=== PATIENT | female | born 1960 | race Caucasian/White ===

== ENCOUNTER 2017-12-13 09:05 | Emergency (ER) | payer OTHER ==
[~2017-12-13] VITALS: Ht 160 cm; Wt 71.7 kg
[~2017-12-13 09:05] MED LIST: HYDR-971 PO; ONDA4TAB10 PO
[2017-12-13 09:10] VITALS: BP 148/97
[2017-12-13] MEDS ORDERED: HYDROcodone/APAP 5/325MG 1 TAB TABLET PO ONE (09:45)
--- NOTE | 2017-12-13 09:52 | RAD ---
Indication: Fall with wrist pain. Technique: 3 views of the right wrist Comparison: None Findings: No acute fracture or dislocation. No significant joint space narrowing or productive changes to suggest osteoarthritis. Mild swelling noted of the dorsum of the wrist. Impression: No acute fracture or dislocation.
[2017-12-13] MEDS ORDERED: TRAM-48 PO (09:55)
--- NOTE | 2017-12-13 09:55 | PHYS DOC ---
Past History Past Medical History: Hepatitis Past Surgical History: Other Alcohol Use: None Drug Use: None Adult General Chief Complaint Chief Complaint: WRIST PAIN HPI HPI 57-year-old right-handed female patient states she had an accidental fall while she was at top of a chair about 2 feet high and tried to reach the top of cabinet and lost her balance and had a fall and landed on her right hand last night with pain in her right wrist that getting get better with applying ice and taking [id number] pain medication. Patient states she had history of fractured wrist at the same area. Patient denies focal neuro deficit and other injuries. Review of Systems Review of Systems Constitutional: Denies fever or chills [] Eyes: Denies change in visual acuity, redness, or eye pain [] HENT: Denies nasal congestion or sore throat [] Respiratory: Denies cough or shortness of breath [] Cardiovascular: No additional information not addressed in HPI [] GI: Denies abdominal pain, nausea, vomiting, bloody stools or diarrhea [] : Denies dysuria or hematuria [] Musculoskeletal: Denies back pain or joint pain [] Integument: Denies rash or skin lesions [] Neurologic: Denies headache, focal weakness or sensory changes [] Endocrine: Denies polyuria or polydipsia [] All other systems were reviewed and found to be within normal limits, except as documented in this note. Current Medications Current Medications Current Medications Medications (Trade) Dose Ordered Sig/[facility] Start Time Stop Time Status Last Admin Dose Admin Acetaminophen/ Hydrocodone Bitart (Lortab 5/325) 1 tab 1X ONCE 12/13/17 09:45 12/13/17 09:46 DC Allergies Allergies Allergies Coded Allergies Type Severity Reaction Last Updated Verified Penicillins Allergy Unknown rash 07/15/16 Yes cephalexin Allergy Unknown rash 07/15/16 Yes ibuprofen Allergy Unknown rash, vomiting 07/15/16 Yes morphine Allergy Unknown anxiety 07/15/16 Yes Physical Exam Physical Exam Constitutional: Well nourished, mild distress, non-toxic appearance, anxious [] HENT: Normocephalic, atraumatic, bilateral external ears normal, oropharynx moist, no oral exudates, nose normal. [] Eyes: PERRLA, EOMI, conjunctiva normal, no discharge. [] Neck: Normal range of motion, no tenderness, supple, no stridor. [] Cardiovascular:Heart rate regular rhythm, no murmur [] Lungs & Thorax: Bilateral breath sounds clear to auscultation [] Skin: Warm, dry, no erythema, no rash. [] Extremities: Right studies with mild edema in medial side and tenderness without focal neuro deficit or deformity. [] Neurologic: Alert and oriented X 3, normal motor function, normal sensory function, no focal deficits noted. [] Psychologic: Affect normal, judgement normal, mood normal. [] EKG EKG [] Radiology/Procedures Radiology/Procedures [] Right wrist x-ray interpreted by me and did not show fracture] Course & Med Decision Making Course & Med Decision Making Pertinent Imaging studies reviewed. (See chart for details) Evaluation of patient in ER showed 57-year-old female patient with a fall last night and injury to right wrist with history of previous fracture at the same area. Patient had tenderness in medial side of his with anxiety. X-ray did not show fracture, Velcro wrist splint was applied by DISTRIBUTION MANAGER and patient discharged home with prescription of Ultram and instruction to follow up with her primary care physician. [] Dragon Disclaimer Dragon Disclaimer This electronic medical record was generated, in whole or in part, using a voice recognition dictation system. Departure Departure: Impression: Primary Impression: Right wrist sprain Additional Impressions: Tobacco abuse Tobacco abuse counseling Disposition: HOME, SELF-CARE (At 0951) Condition: IMPROVED Referrals: LUIS ARMANDO HARRIS MD (PCP) Patient Instructions: Wrist Sprain with [facility] Additional Instructions: Quit smoking Follow-up with your primary care physician in 3-5 days Return to ER if not getting better Apply ice on the affected area Scripts Tramadol Hcl (ULTRAM) 50 Mg Tablet 50 MG PO PRN Q6HRS Y for PAIN, #14 TAB Prov: KOSTAS DAVENPORT MD 12/13/17 Problem Qualifiers KOSTAS DAVENPORT MD Dec 13, 2017 09:55
== END 2017-12-13 10:02 | disposition home or self-care (01) ==
LOC: ER 09:05
DX: S63.501A Unspecified sprain of right wrist, initial encounter (principal); Z88.0 Allergy status to penicillin; Z88.1 Allergy status to other antibiotic agents; Z88.6 Allergy status to analgesic agent; Z88.5 Allergy status to narcotic agent; W07.XXXA Fall from chair, initial encounter; Y93.89 Activity, other specified; Y99.8 Other external cause status; Y92.89 Other specified places as the place of occurrence of the external cause
CPT/HCPCS: 29125; 73110; 99284

== ENCOUNTER 2018-05-11 18:53 | Emergency (ER) | payer OTHER ==
[~2018-05-11] VITALS: Ht 160 cm; Wt 65.0 kg
[~2018-05-11 18:53] MED LIST changes: +TRAM-48 PO
--- NOTE | 2018-05-11 18:56 | ED.ADGEN ---
Past History Past Medical History: Anxiety, Bronchitis, Cancer, COPD, Hepatitis, UTI, Other Past Surgical History: Hysterectomy, Tubal ligation, Other Alcohol Use: Rarely Drug Use: Marijuana Adult General Chief Complaint Chief Complaint ".. I have multiple complaints.. my teeth.. I still need the rest out... I had a bunch on 2 weeks.. ago,,, I have not pooped since last week... I am a every day girl.. I am vomiting foam.. .I just don't feel well...".. " My Lt. wrist hurts... ".. and I got a spider bite my Lt. ankle..." HPI HPI Patient is a 57 year old female who presents with above hx and multiple complaints. Pt. main 1# complaints if nausea and vomiting. Pt. has had poor intake. Still passing gas rectally. Pt. has had multiple abd. surgeries, for cancer and hysterectomy 2nd HPV. 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 Pt. denies bad food, travel or specific ill contacts. Pt. does still smoke. Pt. has Hx. of Hept. C. - chronic. Pt. follows with Dr. Lou Gottlieb. Pt. is accompanied with her older sister. Review of Systems Review of Systems Constitutional: Denies fever or chills [] Eyes: Denies change in visual acuity, redness, or eye pain [] HENT: Denies nasal congestion or sore throat [] Respiratory: Denies cough or shortness of breath [] Cardiovascular: No additional information not addressed in HPI [] GI:Complaints of abdominal pain, nausea, vomiting, and constipation. Denies bloody stools or diarrhea [] : Denies dysuria or hematuria [] Musculoskeletal: Denies back pain or joint pain []Except Lt wrist pain. Integument: Denies rash or skin lesions [] Hx spider bite Lt ankle Neurologic: Denies headache, focal weakness or sensory changes [] Endocrine: Denies polyuria or polydipsia [] All other systems were reviewed and found to be within normal limits, except as documented in this note. Family History Family History Noncontributory Current Medications Current Medications Current Medications Medications (Trade) Dose Ordered Sig/Loc Start Time Stop Time Status Last Admin Dose Admin Diphenhydramine HCl (Benadryl) 50 mg 1X ONCE 05/11/18 23:00 7/3/18 23:01 DC 05/11/18 22:57 50 MG Famotidine (Pepcid) 20 mg 1X ONCE 05/11/18 19:30 05/11/18 19:31 DC 05/11/18 19:31 20 MG Info (Do NOT chart on this entry -- for MONITORING) 1 each PRN DAILY PRN 05/11/18 20:45 05/11/18 23:50 DC Iohexol (Omnipaque 240 Mg/ml) 30 ml 1X ONCE 05/11/18 20:45 05/11/18 20:46 DC 05/11/18 21:45 30 ML Iohexol (Omnipaque 300 Mg/ml) 75 ml 1X ONCE 05/11/18 20:45 05/11/18 20:46 DC 05/11/18 21:45 75 ML Ketorolac Tromethamine (Toradol) 30 mg 1X ONCE 05/11/18 22:45 05/11/18 22:56 DC 05/11/18 22:42 30 MG Lactated Ringer's 1,000 ml @ 1,000 mls/hr Q1H 05/11/18 19:11 05/11/18 20:10 DC 05/11/18 19:32 1,000 MLS/HR Levofloxacin (Levaquin) 500 mg 1X ONCE 05/11/18 21:00 05/11/18 21:01 DC 05/11/18 20:54 500 MG Magnesium Hydroxide (Milk Of Magnesia) 2,400 mg 1X ONCE 05/11/18 19:30 05/11/18 19:31 DC 05/11/18 19:31 2,400 MG Metronidazole 100 ml @ 100 mls/hr 1X ONCE 05/11/18 21:00 05/11/18 21:59 DC 05/11/18 20:54 100 MLS/HR Ondansetron HCl (Zofran Odt) 8 mg 1X ONCE 05/11/18 22:45 05/11/18 22:46 DC 05/11/18 22:34 8 MG Oxycodone/ Acetaminophen (Percocet 5/325) 2 tab 1X ONCE 05/11/18 21:00 05/11/18 21:01 DC 05/11/18 20:54 2 TAB Promethazine HCl (Phenergan Im) 25 mg 1X ONCE 05/11/18 23:00 05/11/18 23:01 DC 05/11/18 22:57 25 MG Promethazine HCl (Phenergan) 25 mg STK-MED ONCE 05/11/18 22:47 05/11/18 22:48 DC Tetanus/ Diphtheria Toxoids Adsorbed (Tenivac Vial) 0.5 ml ONCE ONCE 05/11/18 19:45 05/11/18 19:46 DC 05/11/18 20:13 0.5 ML Allergies Allergies Allergies Coded Allergies Type Severity Reaction Last Updated Verified Penicillins Allergy Unknown rash 07/15/16 Yes cephalexin Allergy Unknown rash 07/15/16 Yes ibuprofen Allergy Unknown rash, vomiting 07/15/16 Yes morphine Allergy Unknown anxiety 07/15/16 Yes Physical Exam Physical Exam Constitutional: Moderately acute distress, non-toxic appearance. [] HENT: Normocephalic, atraumatic, bilateral external ears normal, oropharynx moist, no oral exudates, nose normal. Dental caries poor dentition Eyes: PERRLA, EOMI, conjunctiva normal, no discharge. [] Neck: Normal range of motion, no tenderness, supple, no stridor. [] Cardiovascular: Tachycardia Heart rate regular rhythm, no murmur []PMI to the left Lungs & Thorax: Bilateral breath sounds GERD wheezes on auscultation [] Abdomen: Bowel sounds normal, soft, mild generalized tenderness, no masses, no pulsatile masses. [] Multiple surgical scars. Distended. Obese. Skin: Warm, dry, no erythema, no rash. [] Back: No tenderness, no CVA tenderness. [] Extremities: No tenderness, no cyanosis, no clubbing, ROM intact, no edema. Except Insect bite left lower leg.. Left wrist pain Neurologic: Alert and oriented X 3, normal motor function, normal sensory function, no focal deficits noted. [] Psychologic: Affect anxious, judgement normal, mood normal. [] Current Patient Data Vital Signs Vital Signs Date Time Temp Pulse Resp B/P (MAP) Pulse Ox O2 Delivery O2 Flow Rate FiO2 05/11/18 23:45 98.4 59 20 130/63 (85) 98 Room Air Lab Results Laboratory Tests Test 05/11/18 19:34 White Blood Count 10.0 x10^3/uL (4.0-11.0) Red Blood Count 4.78 x10^6/uL (3.50-5.40) Hemoglobin 15.1 g/dL (12.0-15.5) Hematocrit 44.4 % (36.0-47.0) Mean Corpuscular Volume 93 fL (79-100) Mean Corpuscular Hemoglobin 32 pg (25-35) Mean Corpuscular Hemoglobin Concent 34 g/dL (31-37) Red Cell Distribution Width 14.7 % (11.5-14.5) H Platelet Count 325 x10^3/uL (140-400) Neutrophils (%) (Auto) 66 % (31-73) Lymphocytes (%) (Auto) 25 % (24-48) Monocytes (%) (Auto) 8 % (0-9) Eosinophils (%) (Auto) 0 % (0-3) Basophils (%) (Auto) 1 % (0-3) Neutrophils # (Auto) 6.6 x10^3uL (1.8-7.7) Lymphocytes # (Auto) 2.5 x10^3/uL (1.0-4.8) Monocytes # (Auto) 0.8 x10^3/uL (0.0-1.1) Eosinophils # (Auto) 0.0 x10^3/uL (0.0-0.7) Basophils # (Auto) 0.1 x10^3/uL (0.0-0.2) Prothrombin Time 10.3 SEC (9.4-11.4) Prothrombin Time INR 1.0 (0.9-1.1) PTT 28 SEC (23-33) Urine Collection Type Unknown Urine Color Yulia Urine Clarity Cloudy Urine pH 5.5 Urine Specific Rowena >=1.030 Urine Protein 100 mg/dl (NEG-TRACE) Urine Glucose (UA) Neg mg/dL (NEG) Urine Ketones (Stick) 80 mg/dL (NEG) Urine Blood Small (NEG) Urine Nitrite Pos (NEG) Urine Bilirubin Small (NEG) Urine Urobilinogen Dipstick 0.2 mg/dL (0.2 mg/dL) Urine Leukocyte Esterase Small (NEG) Urine RBC 6-10 /HPF (0-2) Urine WBC >40 /HPF (0-4) Urine Squamous Epithelial Cells Few /LPF Urine Bacteria Many /HPF (0-FEW) Urine Mucus Mod /LPF Sodium Level 141 mmol/L (136-145) Potassium Level 3.6 mmol/L (3.5-5.1) Chloride Level 103 mmol/L (98-107) Carbon Dioxide Level 28 mmol/L (21-32) Anion Gap 10 (6-14) Blood Urea Nitrogen 13 mg/dL (7-20) Creatinine 0.7 mg/dL (0.6-1.0) Estimated GFR (Cockcroft-Gault) 86.9 Glucose Level 100 mg/dL (70-99) H Calcium Level 10.1 mg/dL (8.5-10.1) Total Bilirubin 1.1 mg/dL (0.2-1.0) H Direct Bilirubin 0.3 mg/dL (0.0-0.2) H Aspartate Amino Transferase (AST) 32 U/L (15-37) Alanine Aminotransferase (ALT) 42 U/L (14-59) Alkaline Phosphatase 150 U/L (46-116) H Creatine Kinase 66 U/L (26-192) Creatine Kinase MB (Mass) 1.9 ng/mL (0.0-3.6) Creatine Kinase MB Relative Index 2.9 % (0-4) Troponin I Quantitative < 0.017 ng/mL (0-0.055) Total Protein 8.0 g/dL (6.4-8.2) Albumin 4.3 g/dL (3.4-5.0) Amylase Level 29 U/L (25-115) Lipase 84 U/L (73-393) Urine Opiates Screen Neg (NEG) Urine Methadone Screen Neg (NEG) Urine Barbiturates Neg (NEG) Urine Phencyclidine Screen Neg (NEG) Urine Amphetamine/Methamphetamine Neg (NEG) Urine Benzodiazepines Screen Neg (NEG) Urine Cocaine Screen Neg (NEG) Urine Cannabinoids Screen Pos (NEG) Urine Ethyl Alcohol Neg (NEG) EKG EKG My interpretation of EKG shows a sinus rhythm at 68 bpm. She does have a nonspecific anterior septal changes. But no findings acute STEMI with contralateral changes.[] Radiology/Procedures Radiology/Procedures I interpretation of chest x-ray shows chronic pulmonary changes. No free air under the diaphragm. Nonspecific bowel gas pattern. prior surgical clips in abdomen.[] CT shows no surgical pathology. CT of head shows no shift, mass, edema, bleed, or fracture. X-ray of left wrist shows no obvious fracture. Does have degenerative joint changes. Course & Med Decision Making Course & Med Decision Making Pertinent Labs and Imaging studies reviewed. (See chart for details) Clear fluid diet only x 48 hrs. No solids or milk products. Clear fluids only. Take tylenol and ibuprofen for pain. Zofran for nausea and vomiting. Levaquin 500 daily and Flagyl 500 three times a day. Follow up with primary. Stop smoking. Return if any concerns. [] Final Impression Final Impression 1. Nausea and Vomiting 2. [Abd. Pain 3. UTI- 4. Marijuana and Tobacco use 5. Hx. Hepatitis C- Elev. John. Alk phos. Dragon Disclaimer Dragon Disclaimer This electronic medical record was generated, in whole or in part, using a voice recognition dictation system. MADY WHITE MD May 11, 2018 18:56
[2018-05-11] MEDS ORDERED: IV RINGERS SOLUTION,LACTATED 1,000 ML IV SCH (19:11)
--- NOTE | 2018-05-11 19:25 | EKG ---
[address] [address] Test Date: 2018-05-11 Test Time: 19:18:45 Pat Name: SLICK WHITE Department: Room: Gender: F Dental Hygienist Mobile Coordinator: POPPY : 1960 Requested By: MADY WHITE Order Number: [id number] Reading MD: Homero Macario MD Measurements Intervals [place] Rate: 68 P: 70 KS: 174 QRS: -6 QRSD: 104 T: 71 QT: 432 QTc: 460 Interpretive Statements SINUS RHYTHM rbbb NON-SPECIFIC ST/T CHANGES Electronically Signed On 05-13-2018 12:49:48 CDT by Homero Macario MD
[2018-05-11] MEDS ORDERED: ONDANSETRON ODT 4 MG TAB.RAPDIS PO ONE ×2 (19:30→22:45)
[2018-05-11] MEDS ORDERED: FAMOTIDINE 20 MG TABLET PO ONE (19:30)
[2018-05-11] MEDS ORDERED: MAGNESIUM HYDROXIDE 2,400 MG/30 ML ORAL.SUSP. PO ONE (19:30)
[2018-05-11] MEDS ORDERED: TETANUS AND DIPHTHERIA TOX/PF 0.5 ML VIAL. VAX IM ONE (19:45)
[2018-05-11 19:59] LABS: BASO # 0.1 x10^3/uL (0.0-0.2); BASO % 1 % (0-3); EOS % 0 % (0-3); HEMATOCRIT 44.4 % (36.0-47.0); HEMOGLOBIN 15.1 g/dL (12.0-15.5); LYMPH # 2.5 x10^3/uL (1.0-4.8); LYMPH % 25 % (24-48); MEAN CORPUSCULAR HEMOGLOBIN 32 pg (25-35); MEAN CORPUSCULAR HGB CONC 34 g/dL (31-37); MEAN CORPUSCULAR VOLUME 93 fL (79-100); MONO # 0.8 x10^3/uL (0.0-1.1); MONO % 8 % (0-9); NEUT # 6.6 x10^3uL (1.8-7.7); NEUT % 66 % (31-73); PLATELET COUNT 325 x10^3/uL (140-400); RED BLOOD COUNT 4.78 x10^6/uL (3.50-5.40); RED CELL DISTRIBUTION WIDTH 14.7 % (11.5-14.5)
[2018-05-11 20:09] LABS: BACTERIA,URINE MANY /HPF (0-FEW); BILIRUBIN,URINE SMALL (NEG); CLARITY,URINE CLOUDY; COLOR,URINE AMBER; GLUCOSE,URINE NEG (NEG); NITRITE,URINE POS (NEG); SQUAMOUS EPITHELIAL CELL,UR FEW /LPF; UROBILINOGEN,URINE 0.2 mg/dL (0.2 mg/dL); WBC,URINE >40 /HPF (0-4)
[2018-05-11 20:13] LABS: BARBITURATES NEG (NEG); BENZODIAZEPINES NEG (NEG); CANNABINOIDS POS (NEG); COCAINE NEG (NEG); METHADONE NEG (NEG); OPIATES NEG (NEG); PHENCYCLIDINE NEG (NEG)
[2018-05-11 20:14] LABS: AMPHETAMINE/METHAMPHETAMINE NEG (NEG)
[2018-05-11 20:22] LABS: ALBUMIN 4.3 g/dL (3.4-5.0); CALCIUM 10.1 mg/dL (8.5-10.1); CREATININE 0.7 mg/dL (0.6-1.0); DIRECT BILIRUBIN 0.3 mg/dL (0.0-0.2); GFR 86.9; POTASSIUM 3.6 mmol/L (3.5-5.1); TOTAL BILIRUBIN 1.1 mg/dL (0.2-1.0)
[2018-05-11] MEDS ORDERED: CONTRAST GIVEN MC PRN (20:45)
[2018-05-11] MEDS ORDERED: IOHEXOL 240 MG/ML 50ML VIAL. PO ONE (20:45)
[2018-05-11] MEDS ORDERED: IOHEXOL 300 MG/ML 75 ML VIAL. IV ONE (20:45)
[2018-05-11] MEDS ORDERED: levoFLOXacin 500 MG TABLET PO ONE (21:00)
[2018-05-11] MEDS ORDERED: oxyCODONE/APAP 5/325 1 TAB TABLET PO ONE (21:00)
--- NOTE | 2018-05-11 22:10 | RAD ---
PQRS Compliance Statement: One or more of the following individualized dose reduction techniques were utilized for this examination: 1. Automated exposure control 2. Adjustment of the mA and/or kV according to patient size 3. Use of iterative reconstruction technique CT ABD PELV W/ORAL IV CONTRAST Clinical Indication: Abdomen pain, nausea, vomiting, constipation. Hx: Hysterectomy, Hep C Comparison: None. Technique: Helical CT imaging of the abdomen and pelvis is performed after 75 cc Omnipaque 300 IV contrast. Oral contrast also given. Findings: Mild dependent atelectasis in the bilateral lower lobes. Cardiac size normal. There is a 6 mm hypodensity in segment 5 of the liver, too small to further characterize. Liver otherwise homogeneous. The gallbladder, spleen, pancreas, adrenal glands, and abdominal aorta caliber are normal. There is a right renal cyst measuring 4.5 cm. There is a 1.9 cm cyst in the lower pole of the left kidney. There are multiple other probable cysts that are mainly subcentimeter in the bilateral kidneys. Interpolar 1.6 cm left renal cyst may contain thin septations, coronal image 34. There is no hydronephrosis. No ureteral calculus. Stomach unremarkable. No dilated small bowel. Descending and sigmoid colon diverticulosis without acute inflammation. There is no colon wall thickening. No abdominal adenopathy or free fluid. Urinary bladder is normal. Uterus surgically absent. No pelvic free fluid. No acute bone abnormality. IMPRESSION: 1. No acute abdominal or pelvic abnormality. 2. Distal colon diverticulosis without diverticulitis. 3. Multiple bilateral renal cysts. Small interpolar left renal cyst may be septated. Recommend outpatient renal ultrasound. Electronically signed by: Parvez Bullard MD (05/11/2018 10:07 PM) [facility]
--- NOTE | 2018-05-11 22:18 | RAD ---
WRIST 3V LEFT History: 616930.001 Chronic left wrist pain Comparison: October 03, 2005 Findings: 3 views of the left wrist are submitted. No acute fracture or dislocation is identified. Impression: 1. No acute osseous abnormality is identified. Electronically signed by: Emir Turcios MD (05/11/2018 10:15 PM) [facility]
--- NOTE | 2018-05-11 22:21 | RAD ---
ACUTE ABDOMEN SERIES History: 453368.001 Abdomen pain, nausea and vomiting Comparison: May 26, 2010 Findings: Single view of the chest and single supine and upright views of the abdomen are submitted. There is no lobar consolidation, pleural fluid, pneumothorax. No free air is identified. There is a nonobstructive bowel gas pattern. Impression: 1. There is a nonobstructive bowel gas pattern. There is no significant infiltrate. Electronically signed by: Emir Turcios MD (05/11/2018 10:18 PM) [facility]
[2018-05-11] MEDS ORDERED: ONDA8TAB12 PO (22:26)
[2018-05-11] MEDS ORDERED: LEVO500T59 PO (22:26)
[2018-05-11] MEDS ORDERED: METR500T PO (22:26)
[2018-05-11] MEDS ORDERED: KETOROLAC 30 MG/ML VIAL. ONE (22:36)
[2018-05-11] MEDS ORDERED: KETOROLAC 30 MG/ML VIAL. IV ONE (22:45)
[2018-05-11] MEDS ORDERED: PROMETHAZINE 25 MG/ML VIAL IV ONE (22:47)
[2018-05-11] MEDS ORDERED: PROMETHAZINE IM 25 MG/ML VIAL IM ONE (23:00)
[2018-05-11] MEDS ORDERED: diphenhydrAMINE 50 MG/ML VIAL IVP ONE (23:00)
--- NOTE | 2018-05-11 23:11 | RAD ---
RS Compliance Statement: One or more of the following individualized dose reduction techniques were utilized for this examination: 1. Automated exposure control 2. Adjustment of the mA and/or kV according to patient size 3. Use of iterative reconstruction technique CT HEAD WITHOUT CONTRAST History: 512731.001 Nausea, vomiting, headache today Comparison: None. Procedure: Axial images are obtained of the head from the skull base through the vertex without IV contrast. Findings: Please note earlier same night patient had CT abdomen and pelvis with contrast. Intravascular contrast is still present. This decreases sensitivity for detection of intracranial hemorrhage. The ventricles and sulci are normal for the patient's age. No mass-effect, midline shift, obvious hemorrhage, or extra-axial fluid collection is identified. Basilar cisterns are patent. Bone windows demonstrate no acute calvarial abnormality. The visualized paranasal sinuses are clear. Mastoid air cells are well aerated. IMPRESSION: No acute intracranial abnormality. Electronically signed by: Parvez Bullard MD (05/11/2018 11:08 PM) [facility]
[2018-05-11 23:45] VITALS: BP 130/63
== END 2018-05-11 23:50 | disposition home or self-care (01) ==
LOC: ER 18:53
DX: N39.0 Urinary tract infection, site not specified (principal); F12.10 Cannabis abuse, uncomplicated; F17.200 Nicotine dependence, unspecified, uncomplicated; M25.532 Pain in left wrist; Z86.19 Personal history of other infectious and parasitic diseases; J44.9 Chronic obstructive pulmonary disease, unspecified; F41.9 Anxiety disorder, unspecified; Z90.710 Acquired absence of both cervix and uterus; Z98.51 Tubal ligation status; Z88.0 Allergy status to penicillin; Z88.1 Allergy status to other antibiotic agents; Z88.6 Allergy status to analgesic agent; Z88.5 Allergy status to narcotic agent
CPT/HCPCS: 36415; 70450; 73110; 74022; 74177; 80048; 80076; 80307; 81001; 82150; 82553; 83690; 84484; 85025; 85610; 85730; 90471; 90714; 93005; 96361; 96365; 96372; 96375; 99285; J1200; J1885; J2550; J3490; J7120; Q0162; Q9966; Q9967; 87086; G0479

== ENCOUNTER 2019-01-04 16:19 | Emergency (ER) | payer SELFPAY ==
[~2019-01-04] VITALS: Ht 157.5 cm; Wt 75.7 kg
[~2019-01-04 16:19] MED LIST changes: +HYDR-3165 PO; -HYDR-971 PO; +LEVO500T59 PO; +METR500T PO; +ONDA8TAB12 PO
[2019-01-04] MEDS ORDERED: KETOROLAC 60 MG/2 ML VIAL. IM ONE (17:00)
[2019-01-04] MEDS ORDERED: ORPHENADRINE CITRATE 60 MG/2 ML VIAL. IM ONE (17:00)
[2019-01-04 17:02] VITALS: BP 144/80
--- NOTE | 2019-01-04 17:03 | PHYS DOC ---
Past History Past Medical History: Anxiety, Bronchitis, Cancer, COPD, Hepatitis, UTI, Other Past Surgical History: Appendectomy, , Hysterectomy, Tubal ligation Smoking: Cigarettes, Greater than 1 pack/day Alcohol Use: None Drug Use: Marijuana Adult General Chief Complaint Chief Complaint: BACK PAIN HPI HPI Patient is a 58 year old female who presents with obtaining of low back pain for the last 5 days. Patient complaining of sudden onset of left lower back pain for the last 5 days as a constant pain that getting worse with movement and activity as a cramping pain with radiation to back of left thigh. Patient rated her pain 8/10 and states she took her last Valium today and took Tylenol without improvement of her pain. Patient complaining of intermittent episodes of numbness of left thigh without focal weakness and urine and bowel incontinence. Patient states she has history of chronic back pain and bulging disc but was not agree to have back surgery. Review of Systems Review of Systems Constitutional: Denies fever or chills [] Eyes: Denies change in visual acuity, redness, or eye pain [] HENT: Denies nasal congestion or sore throat [] Respiratory: Denies cough or shortness of breath [] Cardiovascular: No additional information not addressed in HPI [] GI: Denies abdominal pain, nausea, vomiting, bloody stools or diarrhea [] : Denies dysuria or hematuria [] Musculoskeletal: Reports back pain Integument: Denies rash or skin lesions [] Neurologic: Denies headache, focal weakness, reports sensory changes [] Endocrine: Denies polyuria or polydipsia [] All other systems were reviewed and found to be within normal limits, except as documented in this note. Current Medications Current Medications Current Medications Medications (Trade) Dose Ordered Sig/[facility] Start Time Stop Time Status Last Admin Dose Admin Ketorolac Tromethamine (Toradol Im) 60 mg 1X ONCE 01/04/19 17:00 01/04/19 17:01 UNV Orphenadrine Citrate (Norflex) 60 mg 1X ONCE 01/04/19 17:00 01/04/19 17:01 UNV Allergies Allergies Allergies Coded Allergies Type Severity Reaction Last Updated Verified Penicillins Allergy Unknown rash 07/15/16 Yes cephalexin Allergy Unknown rash 07/15/16 Yes ibuprofen Allergy Unknown rash, vomiting 07/15/16 Yes morphine Allergy Unknown anxiety 07/15/16 Yes Physical Exam Physical Exam Constitutional: Well developed, well nourished, mild distress, non-toxic appearance. [] HENT: Normocephalic, atraumatic. Eyes: PERRLA, EOMI, conjunctiva normal, no discharge. [] Neck: Normal range of motion, no tenderness, supple, no stridor. [] Cardiovascular:Heart rate regular rhythm, no murmur [] Lungs & Thorax: Bilateral breath sounds clear to auscultation [] Abdomen: Bowel sounds normal, soft, no tenderness, no masses, no pulsatile masses. [] Skin: Warm, dry, no erythema, no rash. [] Back: No midline tenderness, left paraspinal muscle spasm , no CVA tenderness. [ ] Extremities: No tenderness, no cyanosis, no clubbing, ROM intact, no edema. [] Neurologic: Alert and oriented X 3. Psychologic: Affect anxious, judgement normal, mood normal. [] Current Patient Data Vital Signs Vital Signs Date Time Temp Pulse Resp B/P (MAP) Pulse Ox O2 Delivery O2 Flow Rate FiO2 01/04/19 16:25 97.9 64 20 97 Room Air EKG EKG [] Radiology/Procedures Radiology/Procedures [] Course & Med Decision Making Course & Med Decision Making discharge: I've spoken with the patient and/or caregivers. I've explained the patient's condition, diagnosis and treatment plan based on information available to me at this time. I've answered the patient's and/or caregivers questions and addressed any concerns. The patient and/or caregivers have a good understanding the patient's diagnosis, condition and treatment plan as can be expected at this point. Vital signs have been stabilized. The patient's condition is stable for discharge from the emergency department. The patient will pursue further outpatient evaluation with her primary care provider or other designated consulting physician as outlined in the discharge instructions. Patient and/or caregivers are agreeable to this plan of care and follow-up instructions have been explained in detail. The patient and/or caregivers have received these instructions in written format and expressed understanding of these discharge instructions. The patient and her caregivers are aware that if any significant change in condition or worsening of symptoms should prompt him to immediately return to this of the closest emergency department. If an emergent department is not readily available I would encourage him to call 911. Wu Disclaimer Wu Disclaimer This electronic medical record was generated, in whole or in part, using a voice recognition dictation system. Departure Departure: Impression: Primary Impression: Acute lumbosacral myofascial strain Disposition: 01 HOME, SELF-CARE (at 1750) Condition: IMPROVED Referrals: LUIS ARMANDO HARRIS MD (PCP) Patient Instructions: Lumbosacral Strain, Smoking Cessation, Tips For Success Additional Instructions: Apply ice on the affected area Drink plenty of liquids Follow-up with your primary care physician in 3-5 days Return to ER if not getting better Scripts Hydrocodone Bit/Acetaminophen (NORCO 5-325 TABLET) 1 Each Tablet 1 TAB PO PRN Q6HRS PRN for PAIN, #12 TAB 0 Refills Prov: KOSTAS DAVENPORT MD 01/04/19 Methylprednisolone (MEDROL) 4 Mg Tab.ds.pk 1 PKG PO UD for inflammation, #1 PKG Prov: KOSTAS DAVENPORT MD 01/04/19 Cyclobenzaprine Hcl (CYCLOBENZAPRINE HCL) 10 Mg Tablet 1 TAB PO TID for pain, #30 TAB Prov: KOSTAS DAVENPORT MD 01/04/19 KOSTAS DAVENPORT MD Jan 04, 2019 17:03
[2019-01-04] MEDS ORDERED: CYCL-331 PO (17:52)
[2019-01-04] MEDS ORDERED: METH4TAB2 PO (17:52)
[2019-01-04] MEDS ORDERED: HYDR-3165 PO (17:52)
== END 2019-01-04 18:00 | disposition home or self-care (01) ==
LOC: ER 16:19
DX: S39.012A Strain of muscle, fascia and tendon of lower back, initial encounter (principal); G89.29 Other chronic pain; F41.9 Anxiety disorder, unspecified; J44.9 Chronic obstructive pulmonary disease, unspecified; F17.210 Nicotine dependence, cigarettes, uncomplicated; Z87.440 Personal history of urinary (tract) infections; Z90.49 Acquired absence of other specified parts of digestive tract; Z90.89 Acquired absence of other organs; Z90.710 Acquired absence of both cervix and uterus; Z98.51 Tubal ligation status; Z88.1 Allergy status to other antibiotic agents; Z88.5 Allergy status to narcotic agent; Z88.6 Allergy status to analgesic agent; Z88.0 Allergy status to penicillin; X58.XXXA Exposure to other specified factors, initial encounter; Y93.89 Activity, other specified; Y92.89 Other specified places as the place of occurrence of the external cause; Y99.8 Other external cause status
CPT/HCPCS: 96372; 99283; J1885; J2360

== ENCOUNTER → 2019-04-05 | Outpatient (CLI) | payer SELFPAY ==
[~2019-04-05] MED LIST changes: +CYCL-331 PO; +METH4TAB2 PO
[2019-04-05 11:20] LABS: BASO % 0 % (0-3); EOS # 0.1 x10^3/uL (0.0-0.7); EOS % 1 % (0-3); HEMATOCRIT 44.6 % (36.0-47.0); HEMOGLOBIN 15.2 g/dL (12.0-15.5); LYMPH # 3.4 x10^3/uL (1.0-4.8); LYMPH % 32 % (24-48); MEAN CORPUSCULAR HEMOGLOBIN 32 pg (25-35); MEAN CORPUSCULAR HGB CONC 34 g/dL (31-37); MEAN CORPUSCULAR VOLUME 93 fL (79-100); MONO # 0.7 x10^3/uL (0.0-1.1); MONO % 7 % (0-9); NEUT # 6.5 x10^3uL (1.8-7.7); NEUT % 61 % (31-73); PLATELET COUNT 294 x10^3/uL (140-400); RED BLOOD COUNT 4.81 x10^6/uL (3.50-5.40); WHITE BLOOD COUNT 10.8 x10^3/uL (4.0-11.0)
--- NOTE | 2019-04-05 11:24 | EKG ---
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
[2019-04-05 11:27] LABS: ALBUMIN 4.2 g/dL (3.4-5.0); CALCIUM 9.7 mg/dL (8.5-10.1); CREATININE 0.7 mg/dL (0.6-1.0); DIRECT BILIRUBIN 0.1 mg/dL (0.0-0.2); GFR 86.6; POTASSIUM 3.5 mmol/L (3.5-5.1); TOTAL BILIRUBIN 0.5 mg/dL (0.2-1.0); TOTAL PROTEIN 8.3 g/dL (6.4-8.2)
== END | disposition home or self-care (01) ==
LOC: EKG 10:48
PROVIDERS: ATTEND Anesthesiology
DX: Z01.818 Encounter for other preprocedural examination (principal)
CPT/HCPCS: 36415; 80053; 82248; 85025; 85610; 93005

== ENCOUNTER → 2020-01-09 | Outpatient (CLI) | payer MEDICAID ==
[2020-01-09 16:28] LABS: BASO # 0.1 x10^3/uL (0.0-0.2); BASO % 1 % (0-3); EOS # 0.1 x10^3/uL (0.0-0.7); EOS % 1 % (0-3); HEMATOCRIT 42.4 % (36.0-47.0); HEMOGLOBIN 14.1 g/dL (12.0-15.5); LYMPH # 3.5 x10^3/uL (1.0-4.8); LYMPH % 42 % (24-48); MEAN CORPUSCULAR HEMOGLOBIN 30 pg (25-35); MEAN CORPUSCULAR HGB CONC 33 g/dL (31-37); MEAN CORPUSCULAR VOLUME 91 fL (79-100); MONO # 0.7 x10^3/uL (0.0-1.1); MONO % 8 % (0-9); NEUT # 3.9 x10^3uL (1.8-7.7); NEUT % 47 % (31-73); PLATELET COUNT 248 x10^3/uL (140-400); RED BLOOD COUNT 4.66 x10^6/uL (3.50-5.40); RED CELL DISTRIBUTION WIDTH 15.9 % (11.5-14.5); WHITE BLOOD COUNT 8.2 x10^3/uL (4.0-11.0)
[2020-01-09 16:51] LABS: ALBUMIN 3.6 g/dL (3.4-5.0); ALBUMIN/GLOBULIN RATIO 0.9 (1.0-1.7); CALCIUM 9.2 mg/dL (8.5-10.1); CREATININE 0.8 mg/dL (0.6-1.0); GFR 73.9; POTASSIUM 3.3 mmol/L (3.5-5.1); TOTAL BILIRUBIN 0.3 mg/dL (0.2-1.0); TOTAL PROTEIN 7.4 g/dL (6.4-8.2)
[2020-01-11 12:07] LABS: HCV ULTRA QUANT PCR 508000 IU/mL (.)
== END | disposition home or self-care (01) ==
LOC: LAB 14:55
PROVIDERS: ATTEND Internal Medicine Gastroenterology
DX: B19.20 Unspecified viral hepatitis C without hepatic coma (principal); R11.2 Nausea with vomiting, unspecified
CPT/HCPCS: 36415; 80053; 85025; 87521; 87902

== ENCOUNTER 2020-08-29 09:28 | Observation (INO) | payer MEDICAID ==
[~2020-08-29] VITALS: Ht 157.5 cm; Wt 78.9 kg
[2020-08-29] MEDS ORDERED: ONDANSETRON PF 4 MG/2 ML VIAL. ONE (09:42)
[2020-08-29] MEDS ORDERED: 0.9 % SODIUM CHLORIDE 10 ML DISP.SYRIN. IV ONE (09:45)
[2020-08-29] MEDS ORDERED: methylPREDNISolone SOD SUCC PF 125 MG/2 ML VIAL. IV ONE (09:45)
[2020-08-29] MEDS ORDERED: ONDANSETRON PF 4 MG/2 ML VIAL. IVP ONE (09:45)
--- NOTE | 2020-08-29 09:46 | PHYS DOC ---
Past History Past Medical History: Anxiety, Bronchitis, Cancer, COPD, Hepatitis, UTI, Other Past Surgical History: Appendectomy, , Hysterectomy, Tubal ligation Smoking: Cigarettes, Greater than 1 pack/day Alcohol Use: None Drug Use: Marijuana General Adult EDM: Chief Complaint: NAUSEA/VOMITING/DIARRHEA HPI: HPI: Patient is a 60 year old female who presents for evaluation of cough, congestion and shortness of air. Patient is in mild to early moderate respiratory distress on arrival. Cough has been progressing for the past 1 week. Patient was exposed to Covid by her son before that time as well. Furthermore she has been having nausea vomiting and loose stools. She states she was sent by her doctor to receive a Covid test. Patient has conversational dyspnea on arrival Review of Systems: Review of Systems: Constitutional: Denies fever has chills Eyes: Denies change in visual acuity HENT: has nasal congestion and sore throat Respiratory: has cough and shortness of breath Cardiovascular: Denies chest pain or edema GI: Denies abdominal pain, has nausea, vomiting and diarrhea, no bloody stools : Denies dysuria Musculoskeletal: Denies back pain or joint pain Integument: Denies rash Neurologic: Denies headache, focal weakness or sensory changes Endocrine: Denies polyuria or polydipsia Lymphatic: Denies swollen glands Psychiatric: Denies depression has anxiety Allergies: Allergies: Allergies Coded Allergies Type Severity Reaction Last Updated Verified Penicillins Allergy Unknown rash 07/15/16 Yes cephalexin Allergy Unknown rash 07/15/16 Yes ibuprofen Allergy Unknown rash, vomiting 07/15/16 Yes morphine Allergy Unknown anxiety 07/15/16 Yes Physical Exam: PE: Constitutional: Well developed, well nourished, mild to moderate acute distress, mild toxic appearance. [] HENT: Normocephalic, atraumatic, bilateral external ears normal, oropharynx moist, no oral exudates, nose normal. [] Eyes: PERRL, EOMI, conjunctiva normal, no discharge. [] Neck: Normal range of motion, no tenderness, supple, no stridor. [] Cardiovascular:Heart rate regular rhythm, no murmur [] Lungs & Thorax: Bilateral breath sounds diminished, some wheezing and rhonchi present [] Abdomen: Bowel sounds diminished, soft, no tenderness. [] Skin: Warm, dry, no erythema, no rash. [] Back: No tenderness. [] Extremities: No tenderness, no cyanosis, ROM intact, mild edema. [] Neurologic: Alert and oriented, normal motor function, normal sensory function, no focal deficits noted. [] Psychologic: Affect normal, judgement normal, mood abnormal. [] Current Patient Data: Labs: Laboratory Tests Test 08/29/20 10:01 White Blood Count 10.9 x10^3/uL Red Blood Count 5.22 x10^6/uL Hemoglobin 15.8 g/dL Hematocrit 48.2 % Mean Corpuscular Volume 92 fL Mean Corpuscular Hemoglobin 30 pg Mean Corpuscular Hemoglobin Concent 33 g/dL Red Cell Distribution Width 15.6 % Platelet Count 332 x10^3/uL Segmented Neutrophils % 56 % Band Neutrophils % 1 % Lymphocytes % 31 % Atypical Lymphocytes % (Manual) 1 % Monocytes % 8 % Eosinophils % 1 % Basophils % 2 % Platelet Estimate Adequate Polychromasia Present Anisocytosis Slight Sodium Level 140 mmol/L Potassium Level 3.6 mmol/L Chloride Level 103 mmol/L Carbon Dioxide Level 22 mmol/L Anion Gap 15 Blood Urea Nitrogen 9 mg/dL Creatinine 0.8 mg/dL Estimated GFR (Cockcroft-Gault) 73.7 BUN/Creatinine Ratio 11 Glucose Level 119 mg/dL Calcium Level 9.9 mg/dL Total Bilirubin 0.7 mg/dL Aspartate Amino Transf (AST/SGOT) 40 U/L Alanine Aminotransferase (ALT/SGPT) 51 U/L Alkaline Phosphatase 138 U/L Troponin I Quantitative < 0.017 ng/mL Total Protein 8.6 g/dL Albumin 4.2 g/dL Albumin/Globulin Ratio 1.0 Current Medications Medications (Trade) Dose Ordered Sig/Loc Route PRN Reason Start Time Stop Time Status Last Admin Dose Admin Sodium Chloride (Normal Saline Flush) 10 ml 1X ONCE IV 08/29/20 09:45 08/29/20 09:53 DC 08/29/20 09:45 Ondansetron HCl (Zofran) 4 mg 1X ONCE IVP 08/29/20 09:45 08/29/20 09:53 DC 08/29/20 10:06 Methylprednisolone Sodium Succinate (SOLU-Medrol 125MG VIAL) 125 mg 1X ONCE IV 08/29/20 09:45 08/29/20 09:53 DC 08/29/20 10:06 Ondansetron HCl (Zofran) 4 mg STK-MED ONCE .ROUTE 08/29/20 09:42 08/29/20 09:42 DC EKG: EKG: EKG showed normal sinus rhythm, rate 70, right bundle branch block, nonspecific ST segment changes, RVH with repolarization abnormality, not STEMI Radiology/Procedures: Radiology/Procedures: [[address], [place] [address] IMAGING REPORT Signed PATIENT: SLICK WHITE ACCOUNT: [id number] : 1960 LOCATION: ER AGE: 60 SEX: F EXAM STATUS: REG ER ORD. PHYSICIAN: LUIGI ESCOBAR DO REASON: short of air, cough PROCEDURE: PORTABLE CHEST 1V PORTABLE CHEST 1V History: Shortness of air, cough Comparison: May 11, 2018 Findings: Single view of the chest is submitted. There is somewhat hazy appearing right base infiltrate. There is no dependent pleural fluid or pneumothorax. Heart size is stable. There is atherosclerotic calcification near aortic arch. Impression: 1. There is right base infiltrate. Electronically signed by: Nahun Hart MD (08/29/2020 10:20 AM) [facility] DICTATED AND SIGNED BY: NAHUN HART MD DATE: 08/29/20 1020 CC: LUIS ARMANDO HARRIS MD; LUIGI ESCOBAR DO ~ ] Heart Score: Risk Factors: Risk Factors: DM, Current or recent (<one month) smoker, HTN, HLP, family history of CAD, obesity. Risk Scores: Score 0 - 3: 2.5% MACE over next 6 weeks - Discharge Home Score 4 - 6: 20.3% MACE over next 6 weeks - Admit for Clinical Observation Score 7 - 10: 72.7% MACE over next 6 weeks - Early Invasive Strategies Course & Med Decision Making: Course & Med Decision Making Pertinent Labs and Imaging studies reviewed. (See chart for details) [] Dragon Disclaimer: Dragon Disclaimer: This electronic medical record was generated, in whole or in part, using a voice recognition dictation system. 1153 Case discussed with patient in light of pulmonary infiltrate will admit to the hospital. Until Covid swab results are known patient be treated for community-acquired pneumonia. Due to her allergies I selected Levaquin as her antibiotic of choice and blood cultures will be collected. Dr. Henley was contacted and patient will be a full admission to a telemetry bed. Patient agreed to the admission Departure Departure: Impression: Primary Impression: Person under investigation for COVID-19 Additional Impressions: Community acquired pneumonia Qualified Codes: J18.9 - Pneumonia, unspecified organism COPD exacerbation Gastroenteritis Disposition: ADMITTED INPT THIS HOSP Admitting Physician: Ethel Henley Condition: STABLE Referrals: LUIS ARMANDO HARRIS MD (PCP) LUIGI ESCOBAR DO Aug 29, 2020 09:46
--- NOTE | 2020-08-29 10:05 | EKG ---
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
--- NOTE | 2020-08-29 10:23 | RAD ---
PORTABLE CHEST 1V History: Shortness of air, cough Comparison: May 11, 2018 Findings: Single view of the chest is submitted. There is somewhat hazy appearing right base infiltrate. There is no dependent pleural fluid or pneumothorax. Heart size is stable. There is atherosclerotic calcification near aortic arch. Impression: 1. There is right base infiltrate. Electronically signed by: Emir Turcios MD (08/29/2020 10:20 AM) [facility]
[2020-08-29 10:34] LABS: CALCIUM 9.9 mg/dL (8.5-10.1); CREATININE 0.8 mg/dL (0.6-1.0); GFR 73.7; POTASSIUM 3.6 mmol/L (3.5-5.1)
[2020-08-29 10:39] LABS: ALBUMIN 4.2 g/dL (3.4-5.0); TOTAL BILIRUBIN 0.7 mg/dL (0.2-1.0); TOTAL PROTEIN 8.6 g/dL (6.4-8.2)
[2020-08-29 10:44] LABS: HEMATOCRIT 48.2 % (36.0-47.0); HEMOGLOBIN 15.8 g/dL (12.0-15.5); MEAN CORPUSCULAR HEMOGLOBIN 30 pg (25-35); MEAN CORPUSCULAR HGB CONC 33 g/dL (31-37); MEAN CORPUSCULAR VOLUME 92 fL (79-100); PLATELET COUNT 332 x10^3/uL (140-400); RED BLOOD COUNT 5.22 x10^6/uL (3.50-5.40); RED CELL DISTRIBUTION WIDTH 15.6 % (11.5-14.5); WHITE BLOOD COUNT 10.9 x10^3/uL (4.0-11.0)
[2020-08-29 11:08] LABS: % ATYL 1 % (0-0); % BANDS 1 % (0-9); % BASOS 2 % (0-3); % EOS 1 % (0-5); % LYMPHS 31 % (24-48); % MONOS 8 % (0-10); % SEGS 56 % (35-66); ANISOCYTOSIS SLIGHT; PLT ESTIMATE ADEQUATE (ADEQUATE); POLYCHROMASIA PRESENT
[2020-08-29] MEDS ORDERED: diphenhydrAMINE 50 MG/ML VIAL ONE (12:20)
[2020-08-29] MEDS ORDERED: diphenhydrAMINE 50 MG/ML VIAL IVP ONE (12:30)
[2020-08-29 14:12] VITALS: BP 139/90
[2020-08-29] MEDS ORDERED: LORA-254 PO (14:21)
[2020-08-29] MEDS ORDERED: QUET25TA5 PO (14:21)
[2020-08-29] MEDS ORDERED: PANT40TA6 PO (14:21)
[2020-08-29] MEDS ORDERED: SUCR1TAB PO (14:21)
[2020-08-29] MEDS ORDERED: GABA-586 PO (14:21)
[2020-08-29] MEDS ORDERED: CYCL-331 PO (14:21)
[2020-08-29] MEDS ORDERED: ACETAMINOPHEN-COD #3 PO (14:21)
[2020-08-29] MEDS ORDERED: SUCRALFATE 1 GM TABLET. PO SCH (18:00)
--- NOTE | 2020-08-29 18:39 | HP ---
ADMIT DATE: 08/29/2020 HISTORY OF PRESENT ILLNESS: The patient is a 60-year-old female patient who came to the Emergency Room complaining of nausea, vomiting, diarrhea. She also had cough, congestion. The patient had mild early moderate respiratory distress on arrival. Apparently, the cough has been progressing for the past 1 week. She has been exposed to COVID by her son before that time as well. He has been also having nausea, vomiting and loose stools. She apparently was sent by her doctor to receive a COVID test. She was unable to finish until arrival to the Emergency Room. She was extensively investigated there, has had lab work and imaging studies. Her chemistry was essentially unremarkable. Her white cell count was normal as well as her platelets. Her chest x-ray showed that she has right base infiltrate; however, there is no dependent pleural fluid or pneumothorax. Heart size stable. There is atherosclerotic calcification near aortic arch. The patient was admitted with possible COVID-19 infection/community-acquired pneumonia, chronic obstructive pulmonary disease exacerbation and gastroenteritis. She was treated with IV fluid, steroids and levofloxacin and was admitted for further evaluation and treatment. PAST MEDICAL HISTORY: Significant for chronic obstructive pulmonary disease. She apparently has ovarian cancer and also melanoma. She stated that she was also told to have hypertension, hyperlipidemia, and bronchial asthma, however, she has never received any treatment for that. PAST SURGICAL HISTORY: Significant for her transplant, she had tonsillectomy, adenoidectomy, appendectomy, ovarian cancer removed in 2016. She has melanoma and underwent multiple resection including vulvectomy. ALLERGIES: CEPHALEXIN, IBUPROFEN, and MORPHINE. MEDICATIONS: She is currently on following medications: She is on cyclobenzaprine 10 mg 3 times a day, gabapentin 600 mg 3 times a day, quetiapine fumarate for Seroquel 25 mg at bedtime, lorazepam 2 mg 3 times a day, sucralfate 1 g 4 times a day and Protonix 40 mg twice a day. She is also on Tylenol No. 3; she takes 1-2 tablets every 6 hours. FAMILY HISTORY: Unremarkable. SOCIAL HISTORY: She is . She has a son and a daughter. Her son is an alcoholic and her daughter is a drug addict. She continues to smoke about a pack a day and does not drink alcohol. She has done multiple jobs before. PHYSICAL EXAMINATION: GENERAL: On arrival to the Emergency Room, she was slightly tachypneic, but there is no pallor, jaundice, cyanosis or thyromegaly. No jugular venous distention. No limb edema. VITAL SIGNS: Her heart rate was 71, blood pressure was 145/80, temperature was 98.9, respiratory rate was 16, and oxygen saturation was 90% on room air. HEAD, EYES, EARS, NOSE AND THROAT: Normocephalic, atraumatic. NECK: Supple. HEART: Showed normal first and second heart sounds. No gallop, rub or murmur. CHEST: Shows central trachea, equal bilateral reduced expansion, reduced air entry, vesicular sounds with scattered rhonchi. She has few basal crepitation, mostly posteriorly on the right side. ABDOMEN: Distended, soft, nontender. NEUROLOGIC: She is awake, alert, responding appropriately. All cranial nerves intact. EXTREMITIES: She moves extremities without difficulty. She ambulates without assistance or assistive devices. LABORATORY DATA: Her white cell count was 10,900; hemoglobin 15.8; hematocrit 48; MCV 92, and a platelet count of 332,000 with normal manual differential. Her chemistry showed a serum sodium 140, potassium 3.6, chloride 103, bicarbonate 22, anion gap of 15, BUN 9, creatinine 0.8, estimated GFR was 73 mL per minute. Her glucose was 119, calcium was 9.9. Total bilirubin, AST, ALT, alkaline phosphatase slightly elevated. Total protein 8.6, albumin was 4.2. Her chest x-ray showed that there is somewhat hazy appearing right base infiltrate. There is no dependent pleural effusion or pneumothorax. Heart size is stable. There is atherosclerotic calcification near the aortic arch. ASSESSMENT AND PLAN: The patient was admitted with community-acquired pneumonia, chronic obstructive pulmonary disease exacerbation as well as gastroenteritis. I will reconcile all her medication. I will continue obviously with steroids, levofloxacin as well as bronchodilator. Continue with IV fluid. We will repeat all her lab work again and await the result of the coronavirus PCR. STACIE KUNZ MD DR: RAVINDRA/harsha JOB#: [id number] / [id number]
[2020-08-29 20:00] VITALS: BP 149/86
[2020-08-29] MEDS ORDERED: IPRATRPIUM/ALBUTEROL 0.5/2.5MG 3 ML NEBU. NEB SCH (20:00)
[2020-08-29] MEDS: MEROPENEM 1 GM in IV NORMAL SALINE 100ML 100 ML IV SCH (20:09)
[2020-08-29] MEDS: IPRATROPIUM/ALBUTEROL 20/100mcg/INH INHALER. INH SCH (20:09)
[2020-08-29] MEDS: LORazepam 1 MG TABLET PO PRN (20:10)
[2020-08-29] MEDS: GABAPENTIN 300 MG CAPSULE. PO SCH (20:10)
[2020-08-29] MEDS: QUEtiapine 25 MG TABLET. PO SCH (20:10)
[2020-08-29] MEDS: PANTOPRAZOLE 40 MG TABLET. PO SCH (20:11)
[2020-08-29] MEDS ORDERED: SUCRALFATE 1 GM/10 ML ORAL.SUSP. PO SCH (21:00)
[2020-08-29] MEDS: CYCLOBENZAPRINE 10 MG TABLET. PO PRN (21:17)
[2020-08-29] MEDS: ACETAMINOPHEN/CODEINE 300/30MG TABLET PO PRN (21:17)
[2020-08-29] MEDS: methylPREDNISolone SOD SUCC PF 40 MG/ML VIAL. IV SCH (21:17)
[2020-08-30] MEDS: methylPREDNISolone SOD SUCC PF 40 MG/ML VIAL. IV SCH ×3 (05:23→21:25)
[2020-08-30] MEDS: MEROPENEM 1 GM in IV NORMAL SALINE 100ML 100 ML IV SCH ×3 (05:23→21:25)
[2020-08-30 05:46] VITALS: BP 125/68
[2020-08-30 06:33] LABS: HEMATOCRIT 43.8 % (36.0-47.0); HEMOGLOBIN 14.4 g/dL (12.0-15.5); RED BLOOD COUNT 4.79 x10^6/uL (3.50-5.40); RED CELL DISTRIBUTION WIDTH 15.8 % (11.5-14.5); WHITE BLOOD COUNT 12.8 x10^3/uL (4.0-11.0)
[2020-08-30 07:09] LABS: ALBUMIN 3.5 g/dL (3.4-5.0); ALBUMIN/GLOBULIN RATIO 0.9 (1.0-1.7); C REACTIVE PROTEIN 2.4 mg/L (0-3.3); CALCIUM 9.2 mg/dL (8.5-10.1); CREATININE 0.7 mg/dL (0.6-1.0); GFR 85.9; POTASSIUM 3.8 mmol/L (3.5-5.1); TOTAL BILIRUBIN 0.6 mg/dL (0.2-1.0); TOTAL PROTEIN 7.5 g/dL (6.4-8.2)
[2020-08-30] MEDS: PANTOPRAZOLE 40 MG TABLET. PO SCH ×2 (07:30→16:41)
[2020-08-30] MEDS: SUCRALFATE 1 GM/10 ML ORAL.SUSP. PO SCH ×4 (07:30→20:10)
[2020-08-30] MEDS: IPRATROPIUM/ALBUTEROL 20/100mcg/INH INHALER. INH SCH ×4 (07:30→20:11)
[2020-08-30] MEDS: GABAPENTIN 300 MG CAPSULE. PO SCH ×3 (07:55→20:10)
[2020-08-30] MEDS: CYCLOBENZAPRINE 10 MG TABLET. PO PRN ×3 (07:56→20:10)
[2020-08-30 10:20] VITALS: BP 134/84
[2020-08-30] MEDS: ACETAMINOPHEN/CODEINE 300/30MG TABLET PO PRN (16:49)
[2020-08-30] MEDS: LORazepam 1 MG TABLET PO PRN (16:49)
[2020-08-30 17:00] VITALS: BP 132/74
[2020-08-30 20:00] VITALS: BP 124/63
[2020-08-30] MEDS: QUEtiapine 25 MG TABLET. PO SCH (20:11)
[2020-08-31] MEDS: methylPREDNISolone SOD SUCC PF 40 MG/ML VIAL. IV SCH ×2 (06:17→13:54)
[2020-08-31] MEDS: MEROPENEM 1 GM in IV NORMAL SALINE 100ML 100 ML IV SCH ×2 (06:17→13:54)
[2020-08-31 06:27] VITALS: BP 149/86
[2020-08-31 07:05] LABS: ALBUMIN 3.5 g/dL (3.4-5.0); ALBUMIN/GLOBULIN RATIO 0.9 (1.0-1.7); CALCIUM 9.4 mg/dL (8.5-10.1); CREATININE 0.8 mg/dL (0.6-1.0); GFR 73.7; POTASSIUM 3.7 mmol/L (3.5-5.1); TOTAL BILIRUBIN 0.4 mg/dL (0.2-1.0); TOTAL PROTEIN 7.4 g/dL (6.4-8.2)
[2020-08-31] MEDS: SUCRALFATE 1 GM/10 ML ORAL.SUSP. PO SCH ×2 (07:55→11:30)
[2020-08-31] MEDS: IPRATROPIUM/ALBUTEROL 20/100mcg/INH INHALER. INH SCH (07:55)
[2020-08-31] MEDS: PANTOPRAZOLE 40 MG TABLET. PO SCH (07:55)
[2020-08-31] MEDS: GABAPENTIN 300 MG CAPSULE. PO SCH ×2 (08:30→14:30)
[2020-08-31 10:12] VITALS: BP 140/67
[2020-08-31] MEDS: ACETAMINOPHEN/CODEINE 300/30MG TABLET PO PRN (12:40)
--- NOTE | 2020-08-31 13:12 | PN ---
DATE: 08/30/2020 SUBJECTIVE: The patient is sitting upright in her bed, in no apparent distress. She is somewhat anxious, but her cough is much less. She is afebrile, maintaining her oxygen saturation at 95% on room air. PHYSICAL EXAMINATION: GENERAL: When I examined her, she looked well and was clearly in no apparent respiratory distress. No pallor, jaundice, cyanosis or thyromegaly. No jugular venous distention. No limb edema. VITAL SIGNS: Her heart rate was 97, blood pressure was 134/84, temperature 98.6, respiratory rate was 18 and oxygen saturation was 95%. HEAD, EYES, EAR, NOSE AND THROAT: Showed normocephalic, atraumatic. NECK: Supple. HEART: Showed normal first and second heart sounds. No gallop, rub or murmur. CHEST: Showed central trachea, equally reduced expansion, ____ entry, vesicular sounds. I could not really appreciate any crepitation or rhonchi, and definitely much better than yesterday. ABDOMEN: Slightly distended, soft, nontender. NEUROLOGIC: She is awake, alert, responding appropriately. All cranial nerves are intact. She moves extremities without difficulty. She ambulates without assistance or assistive devices. Her intake was 1500; no output was recorded. LABORATORY DATA: Her lab work this morning showed white cell count of 12,800, hemoglobin 14.4, hematocrit 44, MCV 92 and platelet count 297,000. Her chemistry showed a serum sodium 142, potassium 3.8, chloride 108, bicarbonate 22, anion gap of 12, BUN 12, creatinine 0.7. Estimated GFR was 86 mL per minute. Her glucose 139, calcium was 9.2. Total bilirubin, AST, ALT, alkaline phosphatase were normal. Her C-reactive protein was only 2.4. Her total protein was 7.5, albumin was 3.5. Her D-dimer was 0.89. Her blood cultures are so far negative. ASSESSMENT: 1. Community-acquired pneumonia. 2. Chronic obstructive pulmonary disease. 3. Acute gastroenteritis; however, she has had no further episodes of nausea and vomiting. 4. She was swabbed for COVID-19, the result of which is still pending at the time of this dictation. PLAN: My plan is obviously to continue with the IV steroids, IV meropenem, continue with albuterol and Atrovent, continue with all other medications. Once we have her COVID test negative, she can be taken off the droplet precaution. If she remains well, we can discharge her on oral antibiotic and a tapering course of steroids. STACIE KUNZ MD DR: RAVINDRA/harsha JOB#: [id number] / [id number]
[2020-08-31] MEDS ORDERED: DOXY100C2 PO (14:45)
[2020-08-31] MEDS ORDERED: PRED20TA PO (14:45)
--- NOTE | 2020-08-31 16:03 | DS ---
DATE OF DISCHARGE: 08/31/2020 HOSPITAL COURSE: The patient is resting, slightly propped up in bed, in no apparent distress. She is feeling generally much improved. Her coronavirus by PCR is not detected. She is afebrile, hemodynamically stable. She is maintaining her oxygen saturation at 97% on room air and as she has been up and about without difficulty breathing, a decision was made to discharge her home to finish treatment as an outpatient. PHYSICAL EXAMINATION: GENERAL: When I saw her this afternoon, she looked well and was clearly in no apparent respiratory distress. No pallor, jaundice, cyanosis or thyromegaly. No jugular venous distention or limb edema. VITAL SIGNS: Her heart rate was 77, blood pressure was 140/67, temperature was 97.9, respiratory rate was 18 and oxygen saturation was 97%. HEAD, EYES, EARS, NOSE AND THROAT: Showed normocephalic, atraumatic. NECK: Supple. HEART: Showed normal first and second heart sounds. No gallop or murmur. CHEST: Clear to auscultation. No crepitation or rhonchi. ABDOMEN: Distended, soft, nontender. NEUROLOGIC: She was awake, alert, responding appropriately. All cranial nerves intact. She moves extremities without difficulty. She ambulates without assistance or assistive device. LABORATORY DATA: Her lab work showed her serum sodium 142, potassium 3.7, chloride 106, bicarbonate 26, anion gap of 10, BUN 16, creatinine 0.8, estimated GFR was 74 mL per minute. Her glucose 123, calcium was 9.4. Total bilirubin, AST, ALT, alkaline phosphatase were normal. Total protein 7.4, albumin was 3.5. Her white cell count was 12,800, hemoglobin 14.4, hematocrit 44, MCV 92, and platelet count 297,000. Her coronavirus by PCR was not detectable. DISCHARGE MEDICATIONS: The patient was discharged home to continue on doxycycline 100 mg twice a day for 7 more days. Unfortunately, the patient is allergic to PENICILLIN, CEPHALEXIN, LEVOFLOXACIN. She will be discharged also on a tapering course of prednisone 40 mg once a day for 3 days, 30 mg once a day for 3 days, 20 mg once a day for 3 days and eventually 10 mg once a day for 3 days; Tylenol 650 mg every 6 hours, cyclobenzaprine 10 mg 3 times a day, gabapentin 600 mg 3 times a day, lorazepam 2 mg 3 times a day as needed for anxiety, Protonix 40 mg twice a day, quetiapine fumarate for Seroquel 25 mg at bedtime, sucralfate 1 gram 4 times a day and Combivent Respimat 1 puff twice a day. FINAL DISCHARGE DIAGNOSES: 1. Community-acquired pneumonia, improving. Her coronavirus by PCR was negative. 2. Chronic obstructive pulmonary disease. 3. Acute gastroenteritis, has resolved. Apparently, she has had also esophageal stricture that was dilated and I advised her to make sure that she sits up and drinks doxycycline and at least 8 ounces of water to prevent pill-induced esophagitis. STACIE KUNZ MD DR: RAVINDRA/harsha JOB#: [id number] / [id number]
[2020-08-31] MEDS ORDERED: LACTOBACILLUS RHAMNOSUS GG 1 CAPSULE. PO SCH (21:00)
== END 2020-08-31 15:36 | disposition home or self-care (01) ==
LOC: ER 09:28 → INTOOBSV 11:56 → 1 SOUTH 11:56
PROVIDERS: ADMIT Internal Medicine; ATTEND Internal Medicine
DX: J18.9 Pneumonia, unspecified organism (principal); Z20.828 Contact with and (suspected) exposure to other viral communicable diseases; J44.1 Chronic obstructive pulmonary disease with (acute) exacerbation; I10 Essential (primary) hypertension; K52.9 Noninfective gastroenteritis and colitis, unspecified; E78.5 Hyperlipidemia, unspecified; F17.210 Nicotine dependence, cigarettes, uncomplicated; L50.0 Allergic urticaria; T36.8X5A Adverse effect of other systemic antibiotics, initial encounter; Z85.43 Personal history of malignant neoplasm of ovary; Z90.49 Acquired absence of other specified parts of digestive tract; Z98.891 History of uterine scar from previous surgery; Z90.710 Acquired absence of both cervix and uterus; Z98.51 Tubal ligation status
CPT/HCPCS: 36415; 71045; 80053; 84484; 85007; 85025; 85027; 85379; 86140; 87040; 93005; 96365; 96366; 96367; 96375; 96376; 99285; 99406; G0378; J1200; J1956; J2185; J2405; J2920; J2930; U0003; G0379

== ENCOUNTER → 2021-05-31 | Outpatient (CLI) | payer MEDICAID ==
[~2021-05-31] MED LIST changes: +ACETAMINOPHEN-COD #3 PO; +DOXY100C2 PO; +GABA-586 PO; +LORA-254 PO; +PANT40TA6 PO; +PRED20TA PO; +QUET25TA5 PO; +SUCR1TAB PO
[2021-05-31 18:08] LABS: ALBUMIN 3.9 g/dL (3.4-5.0); DIRECT BILIRUBIN 0.2 mg/dL (0.0-0.2); TOTAL BILIRUBIN 0.6 mg/dL (0.2-1.0); TOTAL PROTEIN 8.2 g/dL (6.4-8.2)
[2021-06-04 20:07] LABS: HCV ULTRA QUANT PCR 159000 IU/mL (.)
== END ==
LOC: LAB 15:59
PROVIDERS: ATTEND Internal Medicine Gastroenterology
DX: B19.20 Unspecified viral hepatitis C without hepatic coma (principal)
CPT/HCPCS: 36415; 80076; 87522

== ENCOUNTER → 2021-06-04 | Outpatient (CLI) | payer MEDICAID ==
[~2021-06-04] MED LIST changes: -DOXY100C2 PO; +DOXY100C3 PO
== END ==
LOC: LAB 15:40
PROVIDERS: ATTEND Internal Medicine Gastroenterology
DX: B18.2 Chronic viral hepatitis C (principal)
CPT/HCPCS: 36415

== ENCOUNTER → 2021-07-29 | Outpatient (CLI) | payer MEDICARE, MEDICAID ==
[~2021-07-29] MED LIST changes: +AZIT500T4 PO; -CYCL-331 PO; +CYCL10TA19 PO
[2021-07-29 15:31] LABS: BASO % 0 % (0-3); EOS # 0.1 x10^3/uL (0.0-0.7); EOS % 1 % (0-3); HEMATOCRIT 46.3 % (36.0-47.0); HEMOGLOBIN 15.5 g/dL (12.0-15.5); LYMPH # 5.2 x10^3/uL (1.0-4.8); LYMPH % 41 % (24-48); MEAN CORPUSCULAR HEMOGLOBIN 31 pg (25-35); MEAN CORPUSCULAR HGB CONC 34 g/dL (31-37); MEAN CORPUSCULAR VOLUME 91 fL (79-100); MONO # 1.1 x10^3/uL (0.0-1.1); MONO % 9 % (0-9); NEUT # 6.2 x10^3uL (1.8-7.7); NEUT % 49 % (31-73); PLATELET COUNT 340 x10^3/uL (140-400); RED BLOOD COUNT 5.08 x10^6/uL (3.50-5.40); RED CELL DISTRIBUTION WIDTH 14.8 % (11.5-14.5); WHITE BLOOD COUNT 12.6 x10^3/uL (4.0-11.0)
[2021-07-29 15:35] LABS: BARBITURATES NEG (NEG); BENZODIAZEPINES NEG (NEG); CANNABINOIDS POS (NEG); COCAINE NEG (NEG); METHADONE NEG (NEG); OPIATES NEG (NEG); PHENCYCLIDINE NEG (NEG)
[2021-07-29 15:36] LABS: ALBUMIN/GLOBULIN RATIO 0.9 (1.0-1.7); CALCIUM 9.7 mg/dL (8.5-10.1); CREATININE 0.7 mg/dL (0.6-1.0); GFR 85.9; POTASSIUM 3.7 mmol/L (3.5-5.1); TOTAL BILIRUBIN 0.8 mg/dL (0.2-1.0); TOTAL PROTEIN 8.4 g/dL (6.4-8.2)
[2021-07-29 15:37] LABS: AMPHETAMINE/METHAMPHETAMINE NEG (NEG)
[2021-08-01 13:12] LABS: HCV ULTRA QUANT PCR 265000 IU/mL (.)
== END ==
LOC: LAB 14:17
PROVIDERS: ATTEND Internal Medicine Gastroenterology
DX: B19.20 Unspecified viral hepatitis C without hepatic coma (principal); Z03.89 Encounter for observation for other suspected diseases and conditions ruled out; Z79.891 Long term (current) use of opiate analgesic
CPT/HCPCS: 36415; 80053; 80307; 85025; 87522; 87902

== ENCOUNTER 2021-09-22 18:33 | Emergency (ER) | payer MEDICARE, MEDICAID ==
[~2021-09-22] VITALS: Ht 157.5 cm; Wt 85.5 kg
[~2021-09-22 18:33] MED LIST changes: -AZIT500T4 PO
[2021-09-22 18:40] VITALS: BP 144/103
[2021-09-22] MEDS ORDERED: AZITHROMYCIN 250 MG TABLET. PO ONE ×2 (19:00)
[2021-09-22] MEDS ORDERED: AZIT500T4 PO (19:00)
[2021-09-22] MEDS ORDERED: guaiFENesin/CODEINE 100mg/10mg 5 ML LIQUID PO PRN (19:00)
[2021-09-22] MEDS ORDERED: IPRATRPIUM/ALBUTEROL 0.5/2.5MG 3 ML NEBU. NEB ONE (19:00)
[2021-09-22] MEDS ORDERED: DEXAMETHASONE 4 MG TABLET PO ONE (19:00)
--- NOTE | 2021-09-22 19:01 | PHYS DOC ---
Past History Past Medical History: Anxiety, Bronchitis, Cancer, COPD, Hepatitis, UTI, Other Past Surgical History: Appendectomy, , Hysterectomy, Tubal ligation Smoking: Cigarettes, Greater than 1 pack/day Alcohol Use: None Drug Use: Marijuana Adult General [facility] HPI Patient is a 61-year-old female with a past medical history significant for COPD who presents with a chief complaint of right ear pain for the last couple of days some nasal congestion. States she has had a cough that is been more productive than usual. Denies recent traumas, travels, fevers, chest pain, shortness of breath, abdominal pain, nausea, vomiting, dysuria, hematuria or blood in the stool. Review of Systems Review of Systems Review of systems otherwise unremarkable except noted in HPI Allergies Allergies Allergies Coded Allergies Type Severity Reaction Last Updated Verified levofloxacin Allergy Severe 08/29/20 Yes Penicillins Allergy Unknown rash 07/15/16 Yes cephalexin Allergy Unknown rash 07/15/16 Yes ibuprofen Allergy Unknown rash, vomiting 07/15/16 Yes morphine Allergy Unknown anxiety 07/15/16 Yes Physical Exam Physical Exam Constitutional: Well developed, well nourished, no acute distress, non-toxic appearance. [] HENT: Normocephalic, atraumatic, right otitis media oropharynx moist, no oral exudates, nose normal. [] Eyes: conjunctiva normal, no discharge. [] Neck: Normal range of motion, no tenderness, supple, no stridor, no lymphadenopathy. [] Cardiovascular:Heart rate regular rhythm, no murmur [] Lungs & Thorax: Mild bilateral global rhonchi with no wheezing, no tachypnea or increased work of breathing Abdomen: soft, no tenderness, no masses, no pulsatile masses. [] Skin: Warm, dry, no erythema, no rash. [] Back: no CVA tenderness. [] Extremities: No tenderness, ROM intact, no edema. [] Neurologic: Alert and oriented X 3, no focal deficits noted. [] Psychologic: Affect normal, judgement normal, mood normal. [] EKG EKG [] Radiology/Procedures Radiology/Procedures [] Heart Score C/O Chest Pain: No Risk Factors: Risk Factors: DM, Current or recent (<one month) smoker, HTN, HLP, family hist ory of CAD, obesity. Risk Scores: Risk Factors: DM, Current or recent (<one month) smoker, HTN, HLP, family history of CAD, obesity. Course & Med Decision Making Course & Med Decision Making Patient is a 61-year-old female who presents with a chief complaint of ear pain and nasal congestion with productive cough Vital signs not concerning. Physical exam noted above. Patient given treatment for COPD exacerbation and started on antibiotics in the ED for both otitis media and COPD exacerbation. Discussed all findings with patient. Advised on symptom management at home. Advised to follow-up in 1 with primary care physician to set up a follow-up visit. Gave return precautions to the ED. Patient grateful, verbalized understanding and agreed with plan of discharge. [] Dragon Disclaimer Dragon Disclaimer This electronic medical record was generated, in whole or in part, using a voice recognition dictation system. Departure Departure: Impression: Primary Impression: Otitis media Additional Impression: COPD exacerbation Disposition: HOME / SELF CARE / HOMELESS Condition: IMPROVED Referrals: LUIS ARMANDO HARRIS MD (PCP) Patient Instructions: Chronic Obstructive Pulmonary Disease Exacerbation, Otitis Media, Adult Additional Instructions: Thank you for coming into the emergency department tonight and allowing us to take care of you. Please read the attached information carefully to go back over some of the things we discussed. Scripts Azithromycin (AZITHROMYCIN TABLET) 500 Mg Tablet 1 TAB PO DAILY for Otitis, COPD for 4 Days, #4 TAB 0 Refills Prov: LUIGI VELIZ MD 09/22/21 Problem Qualifiers LUIGI VELIZ MD Sep 22, 2021 19:01
== END 2021-09-22 19:24 | disposition home or self-care (01) ==
LOC: ER 18:33
DX: H66.91 Otitis media, unspecified, right ear (principal); J44.1 Chronic obstructive pulmonary disease with (acute) exacerbation; F17.210 Nicotine dependence, cigarettes, uncomplicated; Z87.440 Personal history of urinary (tract) infections; Z88.1 Allergy status to other antibiotic agents; Z88.0 Allergy status to penicillin; Z88.5 Allergy status to narcotic agent; Z88.6 Allergy status to analgesic agent
CPT/HCPCS: 94640; 99284; J8540

== ENCOUNTER → 2021-11-15 | Outpatient (CLI) | payer OTHER ==
[~2021-11-15] MED LIST changes: +AZIT500T4 PO
[2021-11-15 16:35] LABS: BASO % 0 % (0-3); EOS # 0.2 x10^3/uL (0.0-0.7); EOS % 1 % (0-3); HEMATOCRIT 45.3 % (36.0-47.0); HEMOGLOBIN 15.2 g/dL (12.0-15.5); LYMPH # 6.1 x10^3/uL (1.0-4.8); LYMPH % 37 % (24-48); MEAN CORPUSCULAR HEMOGLOBIN 31 pg (25-35); MEAN CORPUSCULAR HGB CONC 34 g/dL (31-37); MEAN CORPUSCULAR VOLUME 91 fL (79-100); MONO # 1.3 x10^3/uL (0.0-1.1); MONO % 8 % (0-9); NEUT # 8.9 x10^3uL (1.8-7.7); NEUT % 54 % (31-73); PLATELET COUNT 309 x10^3/uL (140-400); RED BLOOD COUNT 4.96 x10^6/uL (3.50-5.40); RED CELL DISTRIBUTION WIDTH 14.8 % (11.5-14.5); WHITE BLOOD COUNT 16.5 x10^3/uL (4.0-11.0)
[2021-11-15 16:43] LABS: ALBUMIN 4.2 g/dL (3.4-5.0); ALBUMIN/GLOBULIN RATIO 1.1 (1.0-1.7); CALCIUM 9.3 mg/dL (8.5-10.1); CREATININE 0.8 mg/dL (0.6-1.0); GFR 73.4; POTASSIUM 3.6 mmol/L (3.5-5.1); TOTAL BILIRUBIN 0.5 mg/dL (0.2-1.0)
[2021-11-15 17:51] LABS: % EOS 1 % (0-5); % LYMPHS 51 % (24-48); % MONOS 4 % (0-10); % SEGS 44 % (35-66)
[2021-11-15 17:52] LABS: PLT ESTIMATE ADEQUATE (ADEQUATE)
== END ==
LOC: LAB 15:54
PROVIDERS: ATTEND Internal Medicine Gastroenterology
DX: B18.2 Chronic viral hepatitis C (principal)
CPT/HCPCS: 80053; 85007; 85025; 87522

== ENCOUNTER → 2021-12-23 | Outpatient (CLI) | payer OTHER ==
[2021-12-23 13:41] LABS: BASO # 0.2 x10^3/uL (0.0-0.2); BASO % 1 % (0-3); EOS # 0.1 x10^3/uL (0.0-0.7); EOS % 1 % (0-3); HEMATOCRIT 45.7 % (36.0-47.0); HEMOGLOBIN 15.2 g/dL (12.0-15.5); LYMPH # 4.7 x10^3/uL (1.0-4.8); LYMPH % 42 % (24-48); MEAN CORPUSCULAR HEMOGLOBIN 31 pg (25-35); MEAN CORPUSCULAR HGB CONC 33 g/dL (31-37); MEAN CORPUSCULAR VOLUME 93 fL (79-100); MONO # 0.8 x10^3/uL (0.0-1.1); MONO % 7 % (0-9); NEUT # 5.5 x10^3uL (1.8-7.7); NEUT % 49 % (31-73); PLATELET COUNT 316 x10^3/uL (140-400); RED CELL DISTRIBUTION WIDTH 14.8 % (11.5-14.5); WHITE BLOOD COUNT 11.2 x10^3/uL (4.0-11.0)
[2021-12-23 14:15] LABS: ALBUMIN 4.2 g/dL (3.4-5.0); CALCIUM 9.2 mg/dL (8.5-10.1); CREATININE 0.9 mg/dL (0.6-1.0); GFR 64.1; POTASSIUM 3.6 mmol/L (3.5-5.1); TOTAL BILIRUBIN 0.5 mg/dL (0.2-1.0); TOTAL PROTEIN 8.6 g/dL (6.4-8.2)
== END ==
LOC: LAB 13:04
PROVIDERS: ATTEND Internal Medicine Gastroenterology
DX: B18.2 Chronic viral hepatitis C (principal)
CPT/HCPCS: 80053; 85025; 87522

== ENCOUNTER → 2022-01-09 | Outpatient (CLI) | payer OTHER ==
[2022-01-09 11:43] LABS: ALBUMIN 3.8 g/dL (3.4-5.0); ALBUMIN/GLOBULIN RATIO 0.9 (1.0-1.7); BASO # 0.1 x10^3/uL (0.0-0.2); BASO % 1 % (0-3); CREATININE 0.9 mg/dL (0.6-1.0); EOS % 0 % (0-3); GFR 64.1; HEMATOCRIT 45.4 % (36.0-47.0); LYMPH # 4.4 x10^3/uL (1.0-4.8); LYMPH % 32 % (24-48); MEAN CORPUSCULAR HEMOGLOBIN 31 pg (25-35); MEAN CORPUSCULAR HGB CONC 33 g/dL (31-37); MEAN CORPUSCULAR VOLUME 94 fL (79-100); MONO # 1.2 x10^3/uL (0.0-1.1); MONO % 8 % (0-9); NEUT # 8.2 x10^3uL (1.8-7.7); NEUT % 59 % (31-73); PLATELET COUNT 293 x10^3/uL (140-400); RED BLOOD COUNT 4.83 x10^6/uL (3.50-5.40); RED CELL DISTRIBUTION WIDTH 14.1 % (11.5-14.5); TOTAL BILIRUBIN 0.8 mg/dL (0.2-1.0); TOTAL PROTEIN 8.2 g/dL (6.4-8.2); WHITE BLOOD COUNT 13.9 x10^3/uL (4.0-11.0)
[2022-01-11 15:09] LABS: HCV ULTRA QUANT PCR HCV Not Detected IU/mL (.)
== END ==
LOC: LAB 10:26
PROVIDERS: ATTEND Internal Medicine Gastroenterology
DX: B18.2 Chronic viral hepatitis C (principal)
CPT/HCPCS: 36415; 80053; 85025; 87522

== ENCOUNTER → 2022-02-26 | Outpatient (CLI) | payer OTHER ==
[2022-02-26 14:34] LABS: BASO # 0.1 x10^3/uL (0.0-0.2); BASO % 1 % (0-3); EOS # 0.2 x10^3/uL (0.0-0.7); EOS % 3 % (0-3); HEMATOCRIT 43.2 % (36.0-47.0); HEMOGLOBIN 14.6 g/dL (12.0-15.5); LYMPH # 3.9 x10^3/uL (1.0-4.8); LYMPH % 42 % (24-48); MEAN CORPUSCULAR HEMOGLOBIN 31 pg (25-35); MEAN CORPUSCULAR HGB CONC 34 g/dL (31-37); MEAN CORPUSCULAR VOLUME 92 fL (79-100); MONO # 0.9 x10^3/uL (0.0-1.1); MONO % 9 % (0-9); NEUT # 4.1 x10^3uL (1.8-7.7); NEUT % 45 % (31-73); PLATELET COUNT 257 x10^3/uL (140-400); RED BLOOD COUNT 4.71 x10^6/uL (3.50-5.40); RED CELL DISTRIBUTION WIDTH 13.8 % (11.5-14.5); WHITE BLOOD COUNT 9.2 x10^3/uL (4.0-11.0)
[2022-02-26 14:43] LABS: ALBUMIN 3.3 g/dL (3.4-5.0); ALBUMIN/GLOBULIN RATIO 0.9 (1.0-1.7); CALCIUM 8.9 mg/dL (8.5-10.1); CREATININE 0.8 mg/dL (0.6-1.0); GFR 73.4; POTASSIUM 3.5 mmol/L (3.5-5.1); TOTAL BILIRUBIN 0.4 mg/dL (0.2-1.0); TOTAL PROTEIN 6.8 g/dL (6.4-8.2)
[2022-02-28 10:16] LABS: HCV ULTRA QUANT PCR HCV Not Detected IU/mL (.)
== END ==
LOC: LAB 13:15
PROVIDERS: ATTEND Internal Medicine Gastroenterology
DX: B18.2 Chronic viral hepatitis C (principal)
CPT/HCPCS: 36415; 80053; 85025; 87522